=== PATIENT | female | born 1960 | race Two or more races ===

== ENCOUNTER 2017-01-10 09:40 | Emergency (ER) | payer SELFPAY ==
[~2017-01-10] VITALS: Ht 149.9 cm; Wt 46.7 kg
[2017-01-10] MEDS ORDERED: ONDANSETRON 2MG/ML, 2ML IVPush ONE (10:30)
[2017-01-10] MEDS ORDERED: SODIUM CHLORIDE 0.9%, 500ML IVBOLUS ONE (10:30)
[2017-01-10] MEDS ORDERED: SODIUM CHLORIDE FLUSH 10ML SYR IVF ONE (10:30)
[2017-01-10] MEDS ORDERED: MORPHINE SULFATE 4 MG/ML, 1ML IVPush ONE (10:30)
[2017-01-10] MEDS ORDERED: ONDANSETRON 2MG/ML, 2ML ONE (10:47)
[2017-01-10] MEDS ORDERED: MORPHINE SULFATE 4 MG/ML, 1ML ONE (10:47)
[2017-01-10] MEDS ORDERED: CLINDAMYCIN PMX 600MG/50ML 50 ML ONE (10:47)
[2017-01-10 11:00] LABS: BLOOD UREA NITROGEN 8 mg/dL (7-18)
[2017-01-10] MEDS ORDERED: CLINDAMYCIN PMX 600MG/50ML 50 ML IV ONE (11:00)
[2017-01-10] MEDS ORDERED: PENT100C2 PO (11:15)
[2017-01-10] MEDS ORDERED: FLUO20CA19 PO (11:15)
[2017-01-10] MEDS ORDERED: OXYC5CAP4 PO (11:15)
[2017-01-10] MEDS ORDERED: OMNIPAQUE 350 MG/ML, 100ML BOTTLE ONE (11:30)
[2017-01-10 13:28] VITALS: BP 122/64
== END 2017-01-10 13:30 | disposition home or self-care (01) ==
LOC: ED 11:46
DX: K04.7 Periapical abscess without sinus (principal); L03.211 Cellulitis of face; Z88.0 Allergy status to penicillin
CPT/HCPCS: 36415; 70491; 80048; 82040; 85025; 96365; 96375; 99285; J2405; Q9967